=== PATIENT | female | born 1965 | race Caucasian/White ===

== ENCOUNTER 2018-05-15 10:16 | Inpatient (IN) ==
[2018-05-15] MEDS ORDERED: NS 1,000 ML IV ONE ×2 (10:55→12:31)
[2018-05-15] MEDS ORDERED: ZOFRAN IV ONE (10:56)
[2018-05-15] MEDS ORDERED: HUMULIN R IV ONE ×2 (11:04→17:16)
[2018-05-15 12:01] LABS: BASO# 0.04 X1000 (0.0-0.2); BASO% 0.4 % (0.0-0.8); EOS# 0.19 X1000 (0.0-0.7); EOS% 1.9 % (0.0-10.0); HEMATOCRIT 41.9 % (37.0-47.0); HEMOGLOBIN 13.7 g/dL (12.0-16.0); IMM GRAN# 0.06 X1000 (0.0-0.04); IMM GRAN% 0.6 % (0.0-0.5); LYMPH# 2.12 X1000 (1.2-3.4); LYMPH% 21.2 % (20.5-51.1); MCH 27.9 PG (27-31); MCHC 32.7 g/dL (33-37); MCV 85.3 FL (81-99); MONO# 0.84 X1000 (0.11-0.59); MONO% 8.4 % (1.7-9.3); MPV 10.9 FL (7.4-10.4); NEUT# 6.77 X1000 (1.4-6.5); NEUT% 67.5 % (42.2-75.2); PLT 289 X1000 (130-400); RBC 4.91 XMIL (4.2-5.4); RDW 16.4 % (11.5-14.5); WBC 10.02 X1000 (4.8-10.8)
--- NOTE | 2018-05-15 12:12 | Diag Imaging Result Doc PS360 ---
EXAM: CHEST-2 VIEWS 05/15/2018 HISTORY: dka work up TECHNIQUE: AP upright and lateral chest COMMENT: There is no evidence of acute cardiac or pulmonary disease. No previous studies are available for comparison. IMPRESSION: No acute disease. Electronically signed by Petros Baum 05/15/2018 12:10 PM
[2018-05-15 12:38] LABS: AGAP 27; ALBUMIN 3.8 g/dL (3.5-5.0); ALKALINE PHOSPHATASE 98 U/L (32-104); BUN 25 mg/dL (8-22); CHLORIDE 87 mmol/L (98-107); COSMO 292; CREATININE 0.8 mg/dL (0.5-0.9); ESTIMATED GFR > 60; GOT 33 U/L (10-30); GPT 34 U/L (10-36); MAGNESIUM 2.2 mg/dL (1.5-2.7); POTASSIUM 4.8 mmol/L (3.5-5.1); SODIUM 131 mmol/L (136-145); TCO2 17 mmol/L (25-35); TOTAL PROTEIN 7.5 g/dL (6.3-8.3)
[2018-05-15 12:52] LABS: GLUCOSE 552 mg/dL (70-104)
[2018-05-15 14:05] LABS: URINE SOURCE CLEAN CATCH
[2018-05-15 14:12] LABS: UR EPITHELIAL CELLS <10 /HPF (<10); URINE BACTERIA NEGATIVE /HPF; URINE RBC <10 /HPF (<10); URINE WBC <10 /HPF (<10)
[2018-05-15 14:14] LABS: BILIRUBIN URINE NEGATIVE (NEGATIVE); BLOOD URINE NEGATIVE (NEGATIVE); COLOR YELLOW; GLUCOSE URINE >1000 mg/dL (NEGATIVE); KETONE URINE 80 mg/dL (NEGATIVE); LEUKOCYTES URINE NEGATIVE (NEGATIVE); NITRITE URINE NEGATIVE (NEGATIVE); PROTEIN URINE TRACE mg/dL (NEGATIVE); SP GRAVITY URINE 1.024; TURBIDITY URINE CLEAR (CLEAR); UROBILINOGEN URINE NORMAL (NORMAL)
--- NOTE | 2018-05-15 17:00 | PROVIDER DOCUMENTATION ---
This chart was entered by Nella Hsu Scribe, acting as scribe for Palomo Mayfield MD. HPI-General Adult - General Chief Complaint: High Blood Sugar Stated Complaint: HIGH BLOOD SUGAR- DR SANDERS Time Seen by Provider: 05/15/18 10:42 Source: patient Allergies/Adverse Reactions: Patient Allergies Allergy/AdvReac Type Severity Reaction Status Date / Time metformin AdvReac NAUSEA/VOMI Verified 05/15/18 16:21 TING Home Medications: Home Medication List Medication Instructions Recorded Confirmed Last Taken Type Atorvastatin Calcium 80 mg PO DAILY 05/15/18 05/15/18 05/15/18 History Carvedilol [Coreg] 12.5 mg PO BID 05/15/18 05/15/18 05/15/18 History Citalopram [Celexa] 10 mg PO DAILY 05/15/18 05/15/18 05/15/18 History Glimepiride 2 mg PO DAILY 05/15/18 05/15/18 05/15/18 History Hum Insulin NPH/Reg Insulin Hm 35 units SQ ORDERED 05/15/18 05/15/18 History [Novolin 70-30 100 Unit/ml Vial] Lisinopril 20 mg PO DAILY 05/15/18 05/15/18 05/15/18 History Promethazine [Phenergan] 25 mg PO PRN PRN 05/15/18 05/15/18 Unknown History - History of Present Illness -Gen Adult Nature of Presenting Problems: Patient is a 52 year old female who presents to the ED with elevated blood sugar. Patient states having nausea this morning and checking her blood sugar and it was elevated. Patient states seeing PCP and was informed to go to the ED. Patient denies urinary symptoms, chest pain and shortness of breath. Location of Pain/Injury: reports: none Pain Radiation: reports: no radiation Quality of Pain: reports: none Severity: reports: mild Onset/Duration: reports: this morning Timing: reports: still present Context/Activities at Onset: reports: light activity Modifying Factors: improves with: nothing Associated Symptoms: reports: nausea Similar Symptoms Previously?: No Recently seen or treated by another doctor?: Yes - Diabetes Related Context Context: reports: high blood sugar Review of Systems - Adult - REVIEW OF SYSTEMS - ADULT Constitutional: reports: no symptoms reported Eyes: reports: no symptoms reported Ears, Nose, Mouth & Throat: reports: no symptoms reported Cardiovascular: reports: no symptoms reported Respiratory: reports: no symptoms reported Gastrointestinal: reports: nausea. denies: abdominal pain, diarrhea, vomiting Genitourinary: reports: no symptoms reported Musculoskeletal: reports: no symptoms reported Integumentary: reports: no symptoms reported Neurological: reports: no symptoms reported Psychiatric: reports: no symptoms reported Endocrine: reports: no symptoms reported Hematologic/Lymphatic: reports: no symptoms reported Allergic/Immunologic: reports: no symptoms reported All Other Systems: Reviewed and Negative Past History - Adult - PAST MEDICAL HISTORY-ADULT Review of Records: reports: Nursing Assessment Review, Medications Reviewed, Social history reviewed & non-contributory. Major Childhood Illnesses: reports: denies history Cardiovascular: reports: HTN Respiratory: reports: denies history Gastrointestinal: reports: denies history Obstetrical/Gynecological: reports: denies history Genitourinary: reports: denies history Musculoskeletal: reports: denies history Neurological: reports: CVA Psychiatric: reports: denies history Endocrine/Immune: reports: Diabetes Other Conditions: reports: denies history - PRIOR SURGERIES/PROCEDURES Surgical/Procedure History: reports: reviewed, not pertinent, - IMMUNIZATION STATUS Childhood Immunizations: See Nurse Assessment Flu Vaccine: See Nurse Assessment - FAMILY HISTORY Family History: reviewed, not pertinent - SOCIAL HISTORY Smoking: denies Substance Use: denies Physical Exam-General - PHYSICAL EXAM-ADULT Initial Vital Signs Reviewed: Yes - CONSTITUTIONAL General Appearance: alert, no apparent distress - HEAD, EARS, NOSE, MOUTH & THROAT HENMT: normal ENT inspection - NECK Neck: normal inspection - RESPIRATORY Respiratory: chest non-tender, lungs clear, normal breath sounds - CARDIOVASCULAR Cardiovascular: normal peripheral pulses, regular rate, rhythm - GASTROINTESTINAL (ABDOMEN) Abdominal Exam: normal bowel sounds, non tender, soft - MUSCULOSKELETAL Back Exam: normal inspection Extremity: non-tender, normal inspection - SKIN Integumentary: normal color, normal turgor, warm/dry - NEUROLOGIC Neurologic: grossly normal - PSYCHIATRIC Psych/Mental Status: normal mood/affect, oriented x 3 Progress - PLAN OF CARE/RESULTS Progress/Plan/Lab Results: Vital Signs - 8 hr 05/15/18 10:19 Temperature 98.1 F Pulse Rate 109 H Respiratory Rate 18 Blood Pressure 181/78 O2 Sat by Pulse Oximetry 100 Laboratory Results - last 24 hr 05/15/18 10:23 POC Glucose 500 H Orders Category Date Time Status CHEST-2 VIEWS [RAD] Stat Exams 05/15/18 10:53 Ordered ACETONE SERUM [CHEM] Stat Lab 05/15/18 11:38 Ordered CBC WITH ELECTRONIC DIFF [HEME] Stat Lab 05/15/18 11:37 Ordered COMPREHENSIVE METABOLIC PANEL [CHEM] Stat Lab 05/15/18 11:37 Ordered LACTATE, PLASMA [CHEM] Stat Lab 05/15/18 11:37 Ordered MAGNESIUM [CHEM] Stat Lab 05/15/18 11:37 Ordered PRO B-NATRIURETIC PEPTIDE Stat Lab 05/15/18 11:37 Ordered URINALYSIS W/POSS RFLX CULT [URINALYSIS] Stat Lab 05/15/18 11:37 Ordered 0.9% Sodium Chloride Inj [Ns] 1,000 ml Med 05/15/18 10:55 Active IV 999 mls/hr Insulin Human Regular [Humulin R] Med 05/15/18 11:04 Discontinued 10 unit IV NOW ONE Ondansetron [Zofran] Med 05/15/18 10:56 Discontinued 4 mg IV NOW ONE Result Diagrams: 05/15/18 11:30 05/15/18 11:30 - REASSESSMENT Reassessment #1 Time Reassessed: 13:04 Status: other (INFORMED BY RT PATIENT REFUSE ABG. ONLY PENDING IS UA TO ENSURE NO UTI. PATIENT HAVE DKA) Reassessment #2 Time Reassessed: 14:00 Status: other (PATIENT FINALLY URINATED. I WILL GO AHEAD AND CONSULT HOSPITALIST FOR DKA.) Reassessment #3 Time Reassessed: 14:28 Status: other (PENDING HOSPITALIST TO CALL BACK; I WILL START PATIENT ON DKA PROTOCOL) - XRAY 1 XRAY Study: Chest ([facility] [address], [address], [place] [address] Department of Imaging Patient: NESHA LADD ANNADM Date: MR#: [id number] : 1965ADM Status: [facility]#: [id number] Age/Sex: 52/FRoom/Bed: Loc: ED Ordering Physician: Palomo Mayfield MD Family Physician: AYE SANDERS Reason for Procedure: dka work up Signed EXAM: CHEST-2 VIEWS 05/15/2018 HISTORY: dka work up TECHNIQUE: AP upright and lateral chest COMMENT: There is no evidence of acute cardiac or pulmonary disease. No previous studies are available for comparison. IMPRESSION: No acute disease. Electronically signed by Petros Baum 05/15/2018 12:10 PM 05/15/18 1210 Interpreting Physician: Petros Baum MD Dictated Date/Time : 05/15/18 1209 cc: Palomo Mayfield MD; Aye Sanders) Departure - Departure Date of Disposition Decision: 05/15/18 Time of Disposition Decision: 14:00 DIAGNOSIS: DKA (diabetic ketoacidoses) Disposition: ADMITTED INPATIENT 09 Certified Medical Emergency: Emergent Condition: Fair - Critical Care Note This patient required my direct & personal management of CC.: Yes Total Time (mins): 38 Critical Care Statement: This patient required my direct personal management to treat or rule out processes, the absence of which, could potentiallly result in sudden, clinically significant life or limb threatening deterioration. Attestation - Physician/ EDWIN Attestation Patient care was provided by Advanced Practice Provider:: No The physician spent face to face time with patient:: Yes Advanced Practice Provider documentation review:: Supervising physician onsite and consulted in the evaluation and care of this patient. The physician did have a face to face encounter with the patient. This chart was documented by the indicated scribe, (Nella Hsu Scribe) and accurately reflects the services I performed and decisions made by me, aPlomo Mayfield MD, as attested by the provider's signature.
[2018-05-15] MEDS ORDERED: D50W SYRINGE IV PRN (17:16)
[2018-05-15] MEDS ORDERED: HUMULIN R 100 UNIT in NS 99 ML IV SCH (17:16)
[2018-05-15] MEDS ORDERED: POTASSIUM CHLORIDE 10% LIQUID PO PRN (17:21)
[2018-05-15] MEDS ORDERED: POTASSIUM CHLORIDE 20 MEQ/SWI 20 MEQ/100 ML IVPB IV PRN (17:21)
[2018-05-15] MEDS ORDERED: MAGNESIUM SULFATE 2 GM/S.W.I. 2 GM/50 ML IVPB IV PRN (17:21)
[2018-05-15] MEDS ORDERED: SODIUM PHOSPHATE 30 MMOL in D5W 250 ML IV PRN (17:21)
[2018-05-15] MEDS: NS 1,000 ML IV SCH (17:21)
[2018-05-15] MEDS ORDERED: POTASSIUM CHLORIDE 40 MEQ/SWI 40 MEQ/100 ML IVPB IV PRN (17:21)
[2018-05-15] MEDS ORDERED: POTASSIUM CHLORIDE 20% LIQUID PO PRN (17:21)
[2018-05-15] MEDS ORDERED: SODIUM BICARBONATE 8.4% 50 MEQ in D5W 250 ML IV PRN (17:21)
[2018-05-15] MEDS ORDERED: SODIUM BICARBONATE 8.4% 100 MEQ in D5W 500 ML IV PRN (17:21)
[2018-05-15] MEDS ORDERED: TYLENOL PO PRN (17:25)
[2018-05-15] MEDS ORDERED: COMPAZINE IV PRN (17:25)
[2018-05-15] MEDS ORDERED: ZOFRAN IV PRN (17:25)
[2018-05-15] MEDS ORDERED: NS 1,000 ML ONE (17:26)
[2018-05-15] MEDS: LOVENOX SUBQ SCH (19:00)
[2018-05-15 20:25] LABS: ALLEN TEST YES; BE -6.9 mmoll (-3.0-3.0); BLOOD TYPE ARTERIAL; HCO3-(ACT) 19.5 mmoll (20.0-26.0); METHB 1.5 % (0.0-1.5); O2(CT) 16.7 mL/dL (15.0-23.0); PCO2(98.6) 32 mmHg (35-45); PO2(98.6) 93 mmHg (60-100); SAMPLE BLOOD; THB 12.4 g/dL (11.5-17.4); pH(98.6) 7.35 (7.35-7.45)
[2018-05-15 20:26] LABS: MODALITY ROOM AIR
[2018-05-15 22:00] LABS: PHOSPHORUS 3.3 mg/dL (2.7-4.5)
[2018-05-15 22:33] LABS: AGAP 20; BUN 22 mg/dL (8-22); CALCIUM 9.2 mg/dL (8.8-10.2); CHLORIDE 96 mmol/L (98-107); COSMO 294; CREATININE 0.9 mg/dL (0.5-0.9); ESTIMATED GFR > 60; POTASSIUM 4.7 mmol/L (3.5-5.1); SODIUM 136 mmol/L (136-145); TCO2 20 mmol/L (25-35)
[2018-05-15 22:41] LABS: GLUCOSE 440 mg/dL (70-104)
[2018-05-16] MEDS: NS 1,000 ML IV SCH ×2 (01:20→08:58)
--- NOTE | 2018-05-16 04:59 | HISTORY AND PHYSICAL ---
PRIMARY CARE PHYSICIAN: ERIKA Nair CHIEF COMPLAINT: High blood sugar, nausea and vomiting. HPI: Ms. Bob is a 52-year-old female who carries a past medical history of diabetes mellitus type 2, recent stroke in early March that has left her with right upper and lower extremity weakness, numbness and tingling, as well as right eye blindness. She gets around with a walker and assistance from her 74-year-old mother. She states she does not have any short-term memory. She cannot remember what hospital she was treated that. She cannot remember the name of the business that she was employed at prior to her CVA. She did know she had just gotten out of the hospital at [place] for DKA on Sunday. Unsure of when she went in. After the interview with the patient, the came in the room. He states this is the third time since her stroke that she has been admitted to the hospital; twice in [place] and once in [place] for DKA. She reported that she went to her PCP, Aye Sanders, today. She was having nausea and vomiting. They checked her blood sugar. Per report it would not register and they were told to come to the ER. In the ED she had blood sugars over 500. She was found to have moderate acetone. She she refused to have ABGs drawn. Anion gap was 27. No white count. No source of infection. Sodium 131, potassium 4.8, BUN 25, creatinine 0.8. Urinalysis was negative. She denies any fever, chills, being around any sick contacts. No headache. No diarrhea. No chest pain. No palpitations. No shortness of breath. She will be admitted to [facility] on the DKA protocol. PAST MEDICAL HISTORY: Past medical history was obtained from doctor's office notes. 1. Major depressive disorder number. 2. Medical noncompliance. 3. Nausea and vomiting. 4. Type 2 diabetes. 5. Visual deficit. 6. Cognitive social or emotional deficit. 7. Hyperlipidemia. 8. Essential hypertension. 9. Recent CVA that affected the right upper and lower extremities as well as right eye blindness and some short-term memory loss and continued tingling and numbness of the right side of the face as well as upper and lower extremities. PAST SURGICAL HISTORY: Two C sections. FAMILY HISTORY: Could not recall. ALLERGIES: No known drug allergies. HOME MEDICATIONS: Have not been reconciled. 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 She has been for 2 years. She uses a walker and is now full care. Her 74-year-old mom helps take care of her, gives her her bath, helps her get up out of the chair and walks with her places with her wheelchair. She lives in [place]. She does have 2 grown sons. She denies any alcohol tobacco, or illicit drug use. PHYSICAL EXAMINATION: VITAL SIGNS: Temperature was 98.1 degrees, heart rate 87, respirations 17, blood pressure 185/50, O2 is 98% on room air. GENERAL: Ms. Bob is an emotional 52-year-old female who is lying on the stretcher in no acute distress HEENT: Atraumatic, normocephalic. PERRL. NECK: Supple. Trachea midline. CV: S1, S2 appreciated. No murmurs, gallops, or rubs noted. No JVD. EXTREMITIES: No lower extremity edema. Bilateral pedal pulses are palpable. PULMONARY: Bilateral breath sounds clear to auscultation all lung [place]. No rales, rhonchi, or wheezes. GI: Soft, nontender, and nondistended. Positive bowel sounds 4 quadrants. NEUROLOGIC: The patient is alert and oriented. She states she does have some problems with short- term memory since her stroke. She does continue to have numbness and tingling to the right side of her body. DIAGNOSTIC DATA: Chest x-ray showed no acute disease. LABORATORY DATA: White count 10, hemoglobin and hematocrit 13 and 41, platelet count is 289,000. Sodium 131, potassium 4.8, BUN 25, creatinine 0.8. Blood glucose was 552, AST 33, ALT 34, alkaline phosphatase 98. ProBNP was 256. Urinalysis was negative. Acetone level was moderate. Again, patient refused ABGs. ASSESSMENT AND PLAN: 1. Diabetic ketoacidosis. Patient will be admitted to [facility], placed on the DKA protocol. Will be aggressively hydrated. Started on IV insulin. We will check her labs per protocol. The patient states she would refuse ABGs. She has been tolerating Diet Coke while in the room. Will do a full liquid diabetic diet. Continue with Zofran for nausea. 2. Diabetes mellitus type 2. See #1. 3. Recent left-sided cerebrovascular accident that left her with read right lower and upper extremity weakness, numbness and tingling. She uses a walker now. She also has some right- sided facial numbness and tingling as well as blind in her right eye. 4. Essential hypertension. Will continue home medications when reconciled. 5. Hyperlipidemia. Will continue statin when reconciled. 6. Nausea and vomiting. We will continue with antiemetics. 7. Major depressive disorder. Will continue home medications once reconciled. 8. Medical noncompliance. Some of the list of medications on the patient list from doctor she has not gotten because they cannot afford them. We talked about diet compliance. I have put in for a dietary consult for education as well as consulted Emergency Response Officer. Patient states she needs help getting her disability as well as her medications. She needs assistance at home. She needs more physical therapy. We will get PT and OT on board while she is in-house and see what our Emergency Response Officer can assist them with. 9. Further recommendation to follow physician evaluation, laboratory, and diagnostic data. Dictated by ERIKA Munoz for Clint Ruiz MD Addendum: Patient seen and examined by myself. Agree with ERIKA note. It reflects my assessment and plan. Patient is being admitted to hospital for DKA. Apparently she has been feeling nauseated and not using her insulin as she is supposed to. Will start insulin drip and send her to [facility]. Will monitor BMP every four hours and will make adjustments of dosis of insulin accordingly. cc: MD Aye Reyes CRNP MTDD
[2018-05-16 05:25] LABS: BASO# 0.03 X1000 (0.0-0.2); BASO% 0.4 % (0.0-0.8); EOS# 0.21 X1000 (0.0-0.7); EOS% 2.9 % (0.0-10.0); HEMATOCRIT 35.8 % (37.0-47.0); HEMOGLOBIN 11.6 g/dL (12.0-16.0); IMM GRAN# 0.04 X1000 (0.0-0.04); IMM GRAN% 0.6 % (0.0-0.5); LYMPH# 1.87 X1000 (1.2-3.4); LYMPH% 26.2 % (20.5-51.1); MCH 28.2 PG (27-31); MCHC 32.4 g/dL (33-37); MCV 87.1 FL (81-99); MONO% 9.8 % (1.7-9.3); NEUT% 60.1 % (42.2-75.2); PLT 241 X1000 (130-400); RBC 4.11 XMIL (4.2-5.4); RDW 16.4 % (11.5-14.5); WBC 7.15 X1000 (4.8-10.8)
[2018-05-16 06:04] LABS: AGAP 16; BUN 18 mg/dL (8-22); CALCIUM 8.5 mg/dL (8.8-10.2); CHLORIDE 101 mmol/L (98-107); COSMO 283; CREATININE 0.7 mg/dL (0.5-0.9); ESTIMATED GFR > 60; GLUCOSE 165 mg/dL (70-104); PHOSPHORUS 3.2 mg/dL (2.7-4.5); POTASSIUM 4.6 mmol/L (3.5-5.1); SODIUM 139 mmol/L (136-145); TCO2 22 mmol/L (25-35)
--- NOTE | 2018-05-16 07:18 | Diag Imaging Result Doc PS360 ---
EXAM: CHEST-PORTABLE 05/16/2018 HISTORY: follow up TECHNIQUE: AP portable at 0607 COMMENT: The inspiration is suboptimal. Compared to 05/15/2018 there has been no significant change. IMPRESSION: Poor inspiration. Electronically signed by Petros Baum 05/16/2018 7:16 AM
--- NOTE | 2018-05-16 08:27 | PROGRESS NOTE ---
DATE: 05/16/2018 SUBJECTIVE: The patient reports feeling fine. Denies any nausea or vomiting. OBJECTIVE: Vital Signs: Temperature 98.1 degrees, heart rate 69, respiratory rate 16, blood pressure 135/44, O2 saturation 95% on room air. General: This is a chronically ill-looking 52- year-old female lying in bed, in no acute distress. HEENT: Head is normocephalic, atraumatic. Mucous membranes dry. Neck: No JVD noted. No carotid bruits. No lymphadenopathy. No thyromegaly. Cardiovascular: S1, S2 heard. No murmurs, gallops, or rubs. Regular rate and rhythm. Respiratory: Clear bilaterally to auscultation. No work of breathing or using accessory muscles. Abdomen: Soft. Nontender to palpation. Bowel sounds present. No organomegaly. Extremities: No clubbing, cyanosis, or edema. Peripheral pulses present in both legs. Neurologic: The patient is alert and oriented x3. Moves 4 extremities. LABORATORY DATA: BMP from this morning showed glucose 165, with anion gap 16, carbon dioxide 22. Hemoglobin A1c 11.0. ASSESSMENT AND PLAN: 1. Diabetic ketoacidosis. I think this condition has resolved so I am going to restart Novolin 70/30 on this patient, but I am going to increase the dose to 45 units subcutaneously b.i.d. Also, I am going to restart glimepiride as well. We will stop insulin drip. We will continue checking Accu-Cheks before meals and also at bedtime. 2. Diabetes mellitus type 2. As we mentioned above. 3. Recent left-sided CVA. Aware. Patient using walker. No acute changes. 4. Essential hypertension. We will continue with blood pressure medications today. 5. Hyperlipidemia. We will continue with the statin. 6. Nausea and vomiting, resolved. We will start a diabetic diet today. 7. Medical noncompliance. We have talked to the patient and reinforced the importance of taking medication as she is supposed to. The patient acknowledged understanding. 8. Disposition. We will continue to monitor this patient here in the [facility]. cc: Clint Ruiz MD
[2018-05-16] MEDS: HUMULIN 70/30 SUBQ SCH ×2 (08:53→21:57)
[2018-05-16] MEDS: PRILOSEC PO SCH (08:54)
[2018-05-16] MEDS: PRINIVIL PO SCH (08:55)
[2018-05-16] MEDS: AMARYL PO SCH (08:55)
[2018-05-16] MEDS: CELEXA PO SCH (08:55)
[2018-05-16] MEDS: COREG PO SCH ×2 (08:56→21:56)
[2018-05-16] MEDS ORDERED: LIPITOR PO SCH ×2 (09:00→21:00)
[2018-05-16] MEDS: HUMALOG SUBQ SCH ×3 (11:59→21:56)
[2018-05-16] MEDS: LOVENOX SUBQ SCH (16:07)
[2018-05-16] MEDS ORDERED: INSULIN PEN NEEDLES ONE (21:59)
[2018-05-17] MEDS ORDERED: CALMOSEPTINE OINTMENT TOP PRN (04:29)
[2018-05-17] MEDS: HUMALOG SUBQ SCH (06:00)
[2018-05-17 07:55] VITALS: BP 128/61
[2018-05-17 08:05] LABS: BASO# 0.02 X1000 (0.0-0.2); BASO% 0.4 % (0.0-0.8); EOS# 0.24 X1000 (0.0-0.7); EOS% 4.4 % (0.0-10.0); HEMATOCRIT 35.2 % (37.0-47.0); HEMOGLOBIN 11.4 g/dL (12.0-16.0); IMM GRAN# 0.02 X1000 (0.0-0.04); IMM GRAN% 0.4 % (0.0-0.5); LYMPH% 29.1 % (20.5-51.1); MCH 28.2 PG (27-31); MCHC 32.4 g/dL (33-37); MCV 87.1 FL (81-99); MONO# 0.57 X1000 (0.11-0.59); MONO% 10.4 % (1.7-9.3); MPV 10.1 FL (7.4-10.4); NEUT# 3.04 X1000 (1.4-6.5); NEUT% 55.3 % (42.2-75.2); PLT 239 X1000 (130-400); RBC 4.04 XMIL (4.2-5.4); RDW 16.3 % (11.5-14.5); WBC 5.49 X1000 (4.8-10.8)
[2018-05-17 08:28] LABS: AGAP 9; BUN 23 mg/dL (8-22); CALCIUM 8.9 mg/dL (8.8-10.2); CHLORIDE 103 mmol/L (98-107); COSMO 281; CREATININE 0.7 mg/dL (0.5-0.9); ESTIMATED GFR > 60; GLUCOSE 121 mg/dL (70-104); SODIUM 138 mmol/L (136-145); TCO2 26 mmol/L (25-35)
[2018-05-17] MEDS: COREG PO SCH (08:45)
[2018-05-17] MEDS: CELEXA PO SCH (08:45)
[2018-05-17] MEDS: PRINIVIL PO SCH (08:45)
[2018-05-17] MEDS: AMARYL PO SCH (08:45)
[2018-05-17] MEDS: HUMULIN 70/30 SUBQ SCH (08:45)
[2018-05-17] MEDS: PRILOSEC PO SCH (08:45)
[2018-05-17] MEDS ORDERED: ZOFRAN ODT PO ONE (11:38)
--- NOTE | 2018-05-19 05:10 | DISCHARGE SUMMARY ---
ADMISSION DATE: 05/15/2018 DISCHARGE DATE: 05/17/2018 DISCHARGE DIAGNOSES: 1. Diabetic ketoacidosis, resolved. 2. Uncontrolled diabetes mellitus type 2. 3. Recent left-sided cerebrovascular accident. 4. Essential hypertension. 5. Hyperlipidemia. 6. Major depressive disorder. 7. Medical noncompliance. CONSULTATIONS: None. PROCEDURES: Chest x-ray done on admission showed no acute disease. HOSPITAL COURSE: This is a 52-year-old, female with a past medical history of uncontrolled diabetes mellitus type 2 who presented to the emergency department with nausea and vomiting. She reports that she was seen recently twice in [place] and also in [facility] for DKA. In the ER, actually, we found the blood sugar to be 500 with an elevated anion gap so she was admitted to the hospital to the intensive care unit for diabetic ketoacidosis. Protocol was followed. The next day, the patient was doing much better. Then, after we were able to stop the drip, we transitioned her to her usual insulin. In this case, it is insulin 70/30, and she was doing fine. Also, because she was not able to get any physical therapy at the time that she had a stroke, we preferred to go ahead and set up physical therapy sessions for this patient as an outpatient. The patient is being discharged in stable condition. DISCHARGE PHYSICAL EXAMINATION: Vital Signs: Temperature 98.0 degrees, heart rate 68, respiratory rate 18, blood pressure 128/61, O2 saturation 100% on room air. General Examination: This is a chronically ill-looking, 52-year-old, female lying in bed, in no acute distress. HEENT: Head is normocephalic and atraumatic. Neck: No JVD noted. No carotid bruits. No lymphadenopathy. No thyromegaly. Cardiovascular Examination: S1 and S2 heard. No murmurs, gallops, or rubs. Regular rate and rhythm. Respiratory Examination: Clear bilaterally to auscultation. No work of breathing or using accessory muscles. Abdomen: Soft, nontender to palpation. Bowel sounds present. No organomegaly. Extremities: No clubbing or cyanosis. Peripheral pulses present in both legs. Neurological Examination: The patient is alert and oriented x3. The patient has some problems with memory secondary to her recent stroke. Moves 4 extremities spontaneously, although she reports numbness and tingling in the right side of her body. DISCHARGE DISPOSITION: Home with self care. Patient is supposed to have physical therapy scheduled here in the hospital. FOLLOWUP: With her primary care physician in a week. LIST OF MEDICATIONS: 1. Insulin 70/30 with 40 units b.i.d. 2. Phenergan 25 mg p.o. daily as needed for nausea. 3. Humalog as scheduled. 4. Reglan 10 mg p.o. 3 times per day. 5. Ibuprofen 600 mg 1 tablet p.o. 3 times per day. 6. Flexeril 10 mg 1 tablet p.o. 2 times per day. 7. Coreg 12.5 mg 1 tablet p.o. b.i.d. 8. Celexa 10 mg 1 tablet p.o. daily. 9. Glimepiride 2 mg 1 tablet p.o. daily. 10. Lisinopril 20 mg 1 tablet p.o. daily. 11. Atorvastatin 80 mg 1 tablet p.o. daily. TIME SPENT DISCHARGING TIS PATIENT: 28 minutes. cc: Clint Ruiz MD
== END 2018-05-17 12:52 | disposition home or self-care (01) | DRG 638 ==
LOC: ED 10:16 → EDIPHOLD 15:21 → MERGE 15:21 → 3S 18:39
PROVIDERS: ATTEND Internal Medicine
CPT/HCPCS: 71010; 71020; 71045; 71046; 80048; 80053; 81001; 82009; 82805; 82948; 83036; 83605; 83735; 83880; 84100; 84443; 85025; 96361; 96372; 96374; 97110; 97116; 97140; 97162; 97166; 99285; A9270; J1650; J1815; J2405; J3480; J7030; XXXXX